=== PATIENT | female | born 1985 | race Caucasian/White ===

== ENCOUNTER 2016-08-01 10:48 | Emergency (ER) | payer OTHER ==
[~2016-08-01] VITALS: Ht 160 cm; Wt 66.7 kg
[2016-08-01 15:34] VITALS: BP 97/50
== END 2016-08-01 15:45 | disposition home or self-care (01) ==
LOC: ER 12:24
DX: O20.8 Other hemorrhage in early pregnancy (principal); O26.891 Other specified pregnancy related conditions, first trimester; R11.0 Nausea; R10.9 Unspecified abdominal pain; Z98.890 Other specified postprocedural states; Z3A.09 9 weeks gestation of pregnancy
CPT/HCPCS: 76801; 76817; 99284; Z7610